=== PATIENT | female | born 1970 | race Caucasian/White ===

== ENCOUNTER 2019-05-01 13:51 | Emergency (ER) | payer MEDICAID ==
[~2019-05-01] VITALS: Ht 157.5 cm; Wt 52.8 kg
[2019-05-01 13:53] VITALS: BP 132/84
[2019-05-01] MEDS ORDERED: LIDOCAINE-MPF 2% ,5ML ONE (14:26)
[2019-05-01] MEDS ORDERED: LIDOCAINE-MPF 1%, 5ML INFIL ONE (14:30)
--- NOTE | 2019-05-01 14:35 | NUR ---
in for I&D of wound.
--- NOTE | 2019-05-01 14:51 | NUR ---
Patient given discharge instructions and they have confirmed that they understand the instructions. Medication script given to pt, pt verbalized she will fill medication, take as ordered and return for a wound check in two days. Patient ambulatory with steady gait.
== END 2019-05-01 14:59 | disposition home or self-care (01) ==
LOC: ED 14:55
DX: L02.412 Cutaneous abscess of left axilla (principal); Z87.891 Personal history of nicotine dependence
CPT/HCPCS: 10060; 99282; 99283

== ENCOUNTER 2019-05-03 09:12 | Emergency (ER) | payer MEDICAID ==
[~2019-05-03] VITALS: Ht 157.5 cm; Wt 53.0 kg
[2019-05-03 09:14] VITALS: BP 111/72
--- NOTE | 2019-05-03 09:47 | NUR ---
pt in and out of room 3 times. provider came twice. pt conitnues to leave and not be in room when provider comes. as
--- NOTE | 2019-05-03 09:53 | NUR ---
REPORT RECEIVED FROM JUANITA VITAL. ASSUMED CARE
== END 2019-05-03 10:07 | disposition home or self-care (01) ==
LOC: ED 09:25
DX: Z48.01 Encounter for change or removal of surgical wound dressing (principal)
CPT/HCPCS: 99281

== ENCOUNTER 2019-10-28 14:13 | Emergency (ER) | payer SELFPAY ==
[~2019-10-28] VITALS: Ht 157.5 cm; Wt 51.0 kg
[2019-10-28 14:16] VITALS: BP 114/45
--- NOTE | 2019-10-28 14:26 | NUR ---
FRIST CONTACT WITH PT. PT HAS CO LEFT FACIAL PAIN AND SWELLING FROM A INFECTED TOOTH THAT WAS PULLED TUESDAY. PT DENIES ANY OTHER SX. PT'S AOX4. RESPS EVEN AND UNLABORED.
[2019-10-28] MEDS ORDERED: KETOROLAC 30 MG/1 ML ONE (14:55)
[2019-10-28] MEDS ORDERED: OXYcodone/APAP 5/325MG TABLET ONE (14:55)
[2019-10-28] MEDS ORDERED: OXYcodone/APAP 5/325MG TABLET PO ONE (15:00)
[2019-10-28] MEDS ORDERED: KETOROLAC 30 MG/1 ML IM ONE (15:00)
--- NOTE | 2019-10-28 15:00 | NUR ---
PT MEDICATED PER EMAR. PT TOLERATED WELL.
--- NOTE | 2019-10-28 15:12 | NUR ---
Patient given discharge instructions and they have confirmed that they understand the instructions. Patient ambulatory with steady gait.
== END 2019-10-28 15:14 | disposition home or self-care (01) ==
LOC: ED 15:08
DX: K08.89 Other specified disorders of teeth and supporting structures (principal); M27.3 Alveolitis of jaws
CPT/HCPCS: 96372; 99283; J1885

== ENCOUNTER 2019-10-31 17:19 | Inpatient (IN) | payer OTHER ==
[~2019-10-31] VITALS: Ht 157.5 cm; Wt 71.0 kg
[~2019-10-31 17:19] MED LIST: DEXAMETHASONE 4 MG/ML, 1ML ONE; ONDANSETRON 2MG/ML, 2ML ONE; PROPOFOL 10 MG/ML, 20ML ONE; ROCURONIUM 10MG/ML,5ML ONE; SUCCINYLCHOLINE 20 MG/ML, 10ML ONE
--- NOTE | 2019-10-31 17:36 | NUR ---
LEANDRA STONE, PT FROM [facility]. PT WITH MADIBULAR ABCESS SENT HERE TO HAVE DRAINED. PT ROCKING BACK IN FORTH ON GUB[place]IA IN PAIN, STATES SHE CAME HERE TO [facility] A FEW DAYS AGO AND WE OFFERED HER IBU FOR HER PAIN. PT STATES, "IF THEY TRY AND GIVEN ME IBUPROFEN FOR THIS PAIN IM GOING TO BECOME HOMICIDAL. VSS AT THIS TIME, AWAITING ERMD FOR ORDERS
--- NOTE | 2019-10-31 18:03 | NUR ---
PT WENT OUTSIDE TO SMOKE, IV IN PLACE. SECURITY CALLED TO BRING PT BACK TO , WILL UPDATE ERMD. Addendum: 10/31/19 at 1832 by DONNIE PT UPDATED ON POC, PT INSTRUCTED SHE IS NOT ALLOWED TO LEAVE THE AND GO OUTSIDE WITH IV ACCESS IN PLACE. PT AGREEABLE TO STAY IN AND BE TREATED
[2019-10-31] MEDS ORDERED: SODIUM CHLORIDE 0.9% 1,000 ML IV ONE (18:32)
[2019-10-31] MEDS ORDERED: ONDANSETRON 2MG/ML, 2ML ONE (18:34)
[2019-10-31] MEDS ORDERED: MORPHINE SULFATE 4 MG/ML, 1ML ONE (18:37)
[2019-10-31] MEDS ORDERED: D5%-0.45% NACL 1,000 ML IV ONE (18:53)
--- NOTE | 2019-10-31 18:55 | NUR ---
RECEIVED REPORT FROM JUANITA KATE. PT LAYING IN BED, REQUESTING MULTIPLE MEDICATIONS FOR PAIN AND INFLAMMATION. ERP TO BEDSIDE TO UPDATE PT ON POC.
--- NOTE | 2019-10-31 18:57 | NUR ---
BEDRAILS UP X2, CALL LIGHT AND BELOGNINGS IN REACH.
[2019-10-31] MEDS ORDERED: MORPHINE SULFATE 4 MG/ML, 1ML IVPush PRN (19:00)
[2019-10-31] MEDS ORDERED: ONDANSETRON 2MG/ML, 2ML IVPush ONE (19:00)
--- NOTE | 2019-10-31 19:16 | NUR ---
Alexandra oconnell in ED - 11/01/19 at 0715 by DONNIE PT TO IMAGING. REPORT GIVEN TO ANETTE MOE RN.
[2019-10-31] MEDS ORDERED: VANCOMYCIN PER PHARMACY MC PRN (19:30)
[2019-10-31] MEDS ORDERED: ONDANSETRON 2MG/ML, 2ML IVPush PRN ×2 (19:30→21:00)
[2019-10-31] MEDS: LACTATED RINGERS 1,000 ML IV SCH (19:30)
[2019-10-31] MEDS ORDERED: MELATONIN 5 MG TABLET PO PRN (19:30)
[2019-10-31] MEDS ORDERED: morphine SULFATE 10 MG/ML, 1ML IVPush PRN ×2 (19:30→21:00)
[2019-10-31] MEDS ORDERED: hydrALAzine 20 MG/ML, 1ML IVPush PRN (19:30)
[2019-10-31] MEDS ORDERED: BISACODYL 10 MG SUPP PR PRN (19:30)
[2019-10-31] MEDS ORDERED: ACETAMINOPHEN 325 MG TABLET PO PRN (19:30)
[2019-10-31] MEDS ORDERED: ONDANSETRON ODT 4 MG PO PRN (19:30)
[2019-10-31] MEDS: NICOTINE 21 MG/24 HR PATCH.TD24 TD SCH (19:30)
[2019-10-31] MEDS ORDERED: POLYETHYLENE GLYCOL 17 GM PACKET PO PRN (19:30)
[2019-10-31 19:44] LABS: BASOPHILS # (AUTO) 0.07 x10^3/uL (0-0.1); BASOPHILS % (AUTO) 1 % (0-1); EOSINOPHILS # (AUTO) 0.04 x10^3/uL (0-0.4); EOSINOPHILS % (AUTO) 0 % (1-7); LYMPHOCYTES # (AUTO) 0.95 x10^3/uL (1-3.4); LYMPHOCYTES % (AUTO) 8 % (22-44); MD NO; MEAN CORPUSCULAR HEMOGLOBIN 29.4 pg (27.0-34.8); MEAN CORPUSCULAR HGB CONC 32.6 g/dL (32.4-35.8); MEAN CORPUSCULAR VOLUME 90.3 fL (80-100); MEAN PLATELET VOLUME 7.2 fL (7.4-10.4); MONOCYTES # (AUTO) 0.84 x10^3/uL (0.2-0.8); MONOCYTES % (AUTO) 7 % (2-9); NEUTROPHILS # (AUTO) 9.54 x10^3/uL (1.8-6.8); NEUTROPHILS % (AUTO) 83 % (42-75); PLATELET COUNT 437 x10^3/uL (130-400); RED BLOOD COUNT 3.69 x10^6/uL (3.82-5.3); RED CELL DISTRIBUTION WIDTH 17.1 % (9.6-15.2)
[2019-10-31 19:52] LABS: ANION GAP 6 mmol/L (5-15); CALCIUM 7.9 mg/dL (8.5-10.1); CHLORIDE 108 mmol/L (98-107)
[2019-10-31 19:53] LABS: CREATININE 0.52 mg/dL (0.55-1.02)
[2019-10-31] MEDS ORDERED: CHLORHEXIDINE 15 ML UDC ONE (19:53)
[2019-10-31] MEDS ORDERED: PROPOFOL 50 ML ONE (20:06)
[2019-10-31] MEDS ORDERED: MIDAZOLAM 1 MG/ML, 2ML ONE (20:07)
[2019-10-31] MEDS ORDERED: FENTANYL PF 250 MCG/5ML ONE (20:07)
[2019-10-31] MEDS ORDERED: LIDOCAINE 1%-EPI 1:100K, 20ML ONE (20:23)
[2019-10-31] MEDS ORDERED: MIDAZOLAM 1 MG/ML, 2ML IV PRN (21:00)
[2019-10-31] MEDS ORDERED: METOCLOPRAMIDE 5 MG/ML, 2ML IVPush PRN (21:00)
[2019-10-31] MEDS ORDERED: OXYcodone 5 MG/5 ML ORAL.SOL UDC PO PRN (21:00)
[2019-10-31] MEDS ORDERED: MEPERIDINE/PF 25MG/0.5ML IVPush PRN (21:00)
[2019-10-31] MEDS ORDERED: PROMETHAZINE 25 MG/ML, 1ML IVPush PRN (21:00)
[2019-10-31] MEDS ORDERED: FENTANYL PF 100 MCG/2ML IV PRN (21:00)
[2019-10-31] MEDS ORDERED: DIPHENHYDRAMINE 50 MG/ML, 1ML IVPush PRN (21:00)
[2019-10-31] MEDS ORDERED: EPHEDRINE 50 MG/ML, 1ML IVPush PRN (21:00)
[2019-10-31] MEDS ORDERED: DIAZEPAM 5 MG/ML, 2ML IVPush PRN (21:00)
[2019-10-31] MEDS ORDERED: HALOPERIDOL 5 MG/ML IV PRN (21:00)
[2019-10-31] MEDS ORDERED: AMPICILLIN/SULBACTAM 3 GM in SODIUM CHLORIDE 0.9% 100 ML IV ONE (21:00)
[2019-10-31] MEDS ORDERED: BUPIVACAINE/PF-EPI 0.5% 1:200K INFIL ONE (21:30)
[2019-10-31] MEDS ORDERED: MEPERIDINE/PF 25MG/ML,1ML ONE (21:51)
[2019-10-31] MEDS ORDERED: OXYcodone 5 MG/5 ML ORAL.SOL UDC ONE (22:12)
[2019-10-31] MEDS ORDERED: FENTANYL PF 100 MCG/2ML ONE (22:12)
[2019-10-31 22:45] VITALS: BP 144/95
[2019-10-31] MEDS ORDERED: PHARMACOKINETIC MONITORING MC PRN (23:30)
[2019-10-31] MEDS ORDERED: PHARMACOKINETIC CONSULTATION MC ONE (23:30)
[2019-11-01] VITALS (7 sets, daily range): BP systolic 102–144; BP diastolic 51–95
[2019-11-01] MEDS: VANCOMYCIN PMX 1GM/200ML 200 ML IV SCH ×2 (01:11→12:56)
[2019-11-01] MEDS: PIPERACILLIN/TAZO/PMX 3.375GM 50 ML IV SCH ×4 (02:22→23:11)
[2019-11-01 05:46] LABS: MEAN CORPUSCULAR HEMOGLOBIN 29.3 pg (27.0-34.8); MEAN CORPUSCULAR HGB CONC 32.2 g/dL (32.4-35.8); MEAN CORPUSCULAR VOLUME 90.9 fL (80-100); MEAN PLATELET VOLUME 7.3 fL (7.4-10.4); PLATELET COUNT 407 x10^3/uL (130-400); RED BLOOD COUNT 3.58 x10^6/uL (3.82-5.3); RED CELL DISTRIBUTION WIDTH 17.1 % (9.6-15.2)
[2019-11-01 05:58] LABS: CHLORIDE 107 mmol/L (98-107)
[2019-11-01 06:04] LABS: ANION GAP 7 mmol/L (5-15); CALCIUM 7.8 mg/dL (8.5-10.1); CREATININE 0.61 mg/dL (0.55-1.02)
[2019-11-01 06:16] LABS: MD YES
[2019-11-01 06:18] LABS: BAND#(MANUAL) 0.79 x10^3/uL; BANDS%(MANUAL) 5 % (0-7); LYMPH#(MANUAL) 0.32 x10^3/uL (1-3.4); LYMPHS% (MANUAL) 2 % (22-44); MONOS#(MANUAL) 1.11 x10^3/uL (0.3-2.7); MONOS% (MANUAL) 7 % (2-9); SEG#(MANUAL) 13.59 x10^3/uL (1.8-6.8); SEGS% (MANUAL) 86 % (42-75)
[2019-11-01 06:19] LABS: <PLATELET ESTIMATE> INCREASED; <PLT MORPHOLOGY> NORMAL PLT MORPH; <RBC MORPHOLOGY> NORMAL
[2019-11-01] MEDS: LACTATED RINGERS 1,000 ML IV SCH (07:25)
[2019-11-01] MEDS: SENNA/DOCUSATE TABLET PO SCH (07:41)
[2019-11-01] MEDS: HYDROcodone/APAP 7.5-325MG/15ML UDC PO PRN ×4 (07:42→23:13)
[2019-11-01] MEDS ORDERED: OXYcodone/APAP 5/325MG TABLET PO PRN (14:30)
[2019-11-01] MEDS: NICOTINE 21 MG/24 HR PATCH.TD24 TD SCH (16:00)
[2019-11-01] MEDS ORDERED: ENOXAPARIN 40 MG/0.4 ML SQ SCH ×2 (18:00→19:30)
[2019-11-02] MEDS: VANCOMYCIN PMX 1GM/200ML 200 ML IV SCH (01:31)
[2019-11-02 02:36] VITALS: BP 134/79
[2019-11-02] MEDS: HYDROcodone/APAP 7.5-325MG/15ML UDC PO PRN ×3 (04:43→12:40)
[2019-11-02] MEDS: PIPERACILLIN/TAZO/PMX 3.375GM 50 ML IV SCH (04:45)
[2019-11-02] MEDS ORDERED: AMPICILLIN/SULBACTAM 1,500 MG in SODIUM CHLORIDE 0.9% 50 ML IV SCH (09:00)
[2019-11-02] MEDS: SENNA/DOCUSATE TABLET PO SCH (09:04)
[2019-11-02 09:33] VITALS: BP 101/65
[2019-11-02 09:56] LABS: MEAN CORPUSCULAR HEMOGLOBIN 28.8 pg (27.0-34.8); MEAN CORPUSCULAR HGB CONC 31.9 g/dL (32.4-35.8); MEAN CORPUSCULAR VOLUME 90.5 fL (80-100); MEAN PLATELET VOLUME 7.1 fL (7.4-10.4); PLATELET COUNT 374 x10^3/uL (130-400); RED BLOOD COUNT 3.14 x10^6/uL (3.82-5.3); RED CELL DISTRIBUTION WIDTH 17.2 % (9.6-15.2)
[2019-11-02 10:03] LABS: ALBUMIN 2.2 g/dL (3.4-5.0); ANION GAP 4 mmol/L (5-15); CALCIUM 8.4 mg/dL (8.5-10.1); CHLORIDE 110 mmol/L (98-107)
[2019-11-02 10:07] LABS: ALANINE AMINOTRANSFERASE 23 U/L (12-78); ALKALINE PHOSPHATASE 38 U/L (45-117); BILIRUBIN,TOTAL 0.3 mg/dL (0.2-1.0); CREATININE 0.67 mg/dL (0.55-1.02); TOTAL PROTEIN 5.6 g/dL (6.4-8.2)
[2019-11-02 10:22] LABS: BASOPHILS # (AUTO) 0.05 x10^3/uL (0-0.1); BASOPHILS % (AUTO) 1 % (0-1); EOSINOPHILS # (AUTO) 0.06 x10^3/uL (0-0.4); EOSINOPHILS % (AUTO) 1 % (1-7); LYMPHOCYTES # (AUTO) 0.81 x10^3/uL (1-3.4); LYMPHOCYTES % (AUTO) 13 % (22-44); MD SCAN; MONOCYTES # (AUTO) 0.52 x10^3/uL (0.2-0.8); MONOCYTES % (AUTO) 8 % (2-9); NEUTROPHILS # (AUTO) 4.82 x10^3/uL (1.8-6.8); NEUTROPHILS % (AUTO) 77 % (42-75)
[2019-11-02] MEDS ORDERED: SENN-193 PO (10:22)
[2019-11-02] MEDS ORDERED: AMOX1TAB64 PO (10:22)
[2019-11-02] MEDS ORDERED: POLY17PO5 PO (10:22)
[2019-11-02] MEDS ORDERED: OXYC-302 PO (11:52)
[2019-11-02] MEDS ORDERED: POTA20PA25 PO (13:27)
== END 2019-11-02 12:52 | disposition home or self-care (01) | DRG 133 ==
LOC: OR 21:38 → EDIP 22:23 → 4NE 22:45 → DCLOUNGE 11-02 12:46
PROVIDERS: ADMIT Family Medicine; ATTEND Internal Medicine
PROC: 0W930ZZ Drainage of Oral Cavity and Throat, Open Approach (ICD-10-PCS; 2019-10-31)
PROC: 0C9M0ZZ Drainage of Pharynx, Open Approach (ICD-10-PCS; principal; 2019-10-31 19:15)
DX: J39.0 Retropharyngeal and parapharyngeal abscess (principal); K12.2 Cellulitis and abscess of mouth; D64.9 Anemia, unspecified; E87.6 Hypokalemia; F17.200 Nicotine dependence, unspecified, uncomplicated; K08.89 Other specified disorders of teeth and supporting structures; M27.2 Inflammatory conditions of jaws; Z03.818 Encounter for observation for suspected exposure to other biological agents ruled out
CPT/HCPCS: 36415; 70100; 80048; 80053; 85025; 87040; 87070; 87075; 87205; 87635; 93005; G0378; J0295; J1100; J1650; J2175; J2250; J2405; J2543; J2704; J3010; J3370; J3490; J0330; J2270; J7030; J7120

== ENCOUNTER 2020-01-10 11:09 | Emergency (ER) | payer MEDICAID ==
[~2020-01-10] VITALS: Ht 157.5 cm; Wt 51.1 kg
[~2020-01-10 11:09] MED LIST changes: +AMOX1TAB64 PO; -DEXAMETHASONE 4 MG/ML, 1ML ONE; -ONDANSETRON 2MG/ML, 2ML ONE; +OXYC-302 PO; +POLY17PO5 PO; +POTA20PA25 PO; -PROPOFOL 10 MG/ML, 20ML ONE; -ROCURONIUM 10MG/ML,5ML ONE; +SENN-193 PO; -SUCCINYLCHOLINE 20 MG/ML, 10ML ONE
[2020-01-10 11:46] LABS: BASOPHILS % (AUTO) 0 % (0-1); EOSINOPHILS % (AUTO) 0 % (1-7); LYMPHOCYTES % (AUTO) 14 % (22-44); MEAN CORPUSCULAR HGB CONC 32.4 g/dL (32.4-35.8); MEAN PLATELET VOLUME 7.5 fL (7.4-10.4); MONOCYTES % (AUTO) 8 % (2-9); NEUTROPHILS % (AUTO) 77 % (42-75); PLATELET COUNT 334 x10^3/uL (130-400); RED BLOOD COUNT 3.69 x10^6/uL (3.82-5.3); RED CELL DISTRIBUTION WIDTH 16.5 % (9.6-15.2)
[2020-01-10 11:54] LABS: MD NO
[2020-01-10 11:56] LABS: ALANINE AMINOTRANSFERASE 44 U/L (12-78); ANION GAP 4 mmol/L (5-15); CALCIUM 8.6 mg/dL (8.5-10.1); CHLORIDE 110 mmol/L (98-107); CREATININE 0.62 mg/dL (0.55-1.02)
[2020-01-10 12:01] LABS: ALKALINE PHOSPHATASE 45 U/L (45-117); BILIRUBIN,TOTAL 0.3 mg/dL (0.2-1.0); TOTAL PROTEIN 6.9 g/dL (6.4-8.2)
--- NOTE | 2020-01-10 12:50 | NUR ---
AIRPORT ATTENDANT: PT TO ROOM FROM LOBBY
[2020-01-10] MEDS ORDERED: KETOROLAC 30 MG/1 ML ONE (13:42)
[2020-01-10] MEDS ORDERED: CEFTRIAXONE PMX 1GM/50ML 50 ML ONE (13:42)
[2020-01-10 13:47] LABS: MICROSCOPIC INDICATED
[2020-01-10] MEDS ORDERED: CEFTRIAXONE PMX 1GM/50ML 50 ML IV ONE (14:00)
[2020-01-10] MEDS ORDERED: KETOROLAC 30 MG/1 ML IVPush ONE (14:00)
--- NOTE | 2020-01-10 14:13 | NUR ---
PT RESTING IN KelleSEAL COVEEVELIN PROVIDED, NO COMPLAINTS AT THIS TIME.
[2020-01-10 14:44] VITALS: BP 117/69
== END 2020-01-10 14:46 | disposition home or self-care (01) ==
LOC: ED 13:39
DX: N10 Acute pyelonephritis (principal); R50.9 Fever, unspecified; F17.210 Nicotine dependence, cigarettes, uncomplicated
CPT/HCPCS: 36415; 80053; 81001; 83690; 84703; 85025; 87086; 96365; 96375; 99284; 99406; J0696; J1885; 96374